=== PATIENT | male | born 1970 | race Caucasian/White ===

== ENCOUNTER → 2016-05-22 | Outpatient (CLI) | payer BC ==
[~2016-05-22] VITALS: Ht 193 cm; Wt 117.1 kg
[2016-05-22 14:57] VITALS: BP 132/95; PULSE 87; Ht 193 cm; Wt 117.1 kg
== END | disposition home or self-care (01) ==
LOC: C.NEUR 14:34
PROVIDERS: ATTEND Internal Medicine Pulmonary Disease
DX: G47.30 Sleep apnea, unspecified (principal); R53.83 Other fatigue; R06.83 Snoring

== ENCOUNTER → 2016-06-01 | Outpatient (CLI) | payer BC ==
--- NOTE | 2016-06-09 16:28 | POLYSOMNOGRAPH REPORT ---
CLINICAL DATA: A 46-year-old male with a BMI of 31.[address] Tamayo and myself with a history of loud snoring, witnessed apnea, and fragmented sleep architecture. On the evening of 06/01/2016, a home sleep apnea test was performed using a Wonderloop type 3 monitor. RECORDING RESULTS: Total recording time was 10 hours. The patient's estimated sleep time and patient monitoring time was 8.8 hours. RESPIRATORY DATA: Very severe sleep apnea/hypopnea was documented. The JUSTUS was 64.9. There were 302 obstructive and 4 mixed apneic episodes. There were 266 hypopneic episodes. The longest respiratory event was 57 seconds. OXIMETRY DATA: Severe hypoxemia was seen. Oxygen dian was 71%. Mean saturation was 91%. Time below 89% was 165 minutes. HEART RATE DATA: Heart rate ranged from 44-75 beats per minute. SNORING DATA: Loud snoring was recorded throughout the night. IMPRESSION: Very severe sleep apnea/hypopnea with severe nocturnal hypoxemia. RECOMMENDATIONS: The patient would benefit from a repeat sleep study with CPAP or use of auto CPAP. AIDEN
== END | disposition home or self-care (01) ==
LOC: C.NEUR 14:04
PROVIDERS: ATTEND Internal Medicine Pulmonary Disease
DX: G47.30 Sleep apnea, unspecified (principal); R53.83 Other fatigue; R06.83 Snoring; R09.02 Hypoxemia

== ENCOUNTER → 2016-06-26 | Outpatient (CLI) | payer BC ==
[~2016-06-26] VITALS: Ht 193 cm; Wt 117.8 kg
[2016-06-26 13:03] VITALS: BP 142/99; PULSE 94; Ht 193 cm; Wt 117.8 kg
== END | disposition home or self-care (01) ==
LOC: C.NEUR 12:44
PROVIDERS: ATTEND Internal Medicine Pulmonary Disease
DX: G47.30 Sleep apnea, unspecified (principal); R53.83 Other fatigue

== ENCOUNTER → 2016-09-04 | Outpatient (CLI) | payer BC ==
[~2016-09-04] VITALS: Ht 193 cm; Wt 120.1 kg
[2016-09-04 16:05] VITALS: BP 155/85; PULSE 106; Ht 193 cm; Wt 120.1 kg
== END | disposition home or self-care (01) ==
LOC: C.NEUR 13:43
PROVIDERS: ATTEND Internal Medicine Pulmonary Disease
DX: G47.30 Sleep apnea, unspecified (principal); R53.83 Other fatigue

== ENCOUNTER → 2017-03-11 | Outpatient (CLI) | payer OTHER ==
[~2017-03-11] VITALS: Ht 193 cm; Wt 121.2 kg
[2017-03-11 15:29] VITALS: BP 160/81; PULSE 94; Ht 193 cm; Wt 121.2 kg
== END | disposition home or self-care (01) ==
LOC: C.NEUR 13:45
PROVIDERS: ATTEND Physician Assistant
DX: G47.30 Sleep apnea, unspecified (principal)